=== PATIENT | male | born 1955 | race Caucasian/White ===

== ENCOUNTER → 2016-08-18 | Outpatient (CLI) | payer OTHER ==
--- NOTE | 2016-08-18 11:50 | XR ---
EXAMINATION TYPE: XR cervical spine comp DATE OF EXAM: 08/18/2016 11:23 AM COMPARISON: NONE HISTORY: Cervicalgia TECHNIQUE: 5 view cervical spine FINDINGS: Prevertebral space is normal. Posterior disc space narrowing is present throughout the cerv ical spine. Posterior spinal lamellar line is intact transthoracic swimmer's view supplemental CT exa m. Foramen are patent. Odontoid is limited with overlying occiput. IMPRESSION: 1. Mild posterior disc space narrowing
--- NOTE | 2016-08-18 11:52 | XR ---
EXAMINATION TYPE: XR thoracic spine 2V DATE OF EXAM: 08/18/2016 11:23 AM COMPARISON: NONE HISTORY: Back pain cervicalgia low back pain TECHNIQUE: 3 view thoracic spine FINDINGS: There are 12 thoracic type vertebral bodies. Alignment is normal. Disc height and vertebral body heights appear preserved. IMPRESSION: 1. Normal thoracic spine
--- NOTE | 2016-08-18 11:56 | XR ---
EXAMINATION TYPE: XR lumbosacral spine min 4V DATE OF EXAM: 08/18/2016 11:24 AM COMPARISON: NONE HISTORY: Low back pain TECHNIQUE: 5 view lumbar spine FINDINGS: There 5 lumbar-type vertebral bodies. Pedicles are intact. Disc heights are preserved. [place] tebral body heights are preserved. IMPRESSION: 1. No suspicious changes lumbar spine.
== END | disposition home or self-care (01) ==
LOC: RADXRMAIN 10:08
PROVIDERS: ATTEND Family Medicine
DX: M48.02 Spinal stenosis, cervical region (principal); M54.5 Low back pain; M54.6 Pain in thoracic spine
CPT/HCPCS: 72050; 72070; 72110